=== PATIENT | male | born 1980 | race Two or more races ===

== ENCOUNTER 2016-12-06 00:36 | Emergency (ER) | payer OTHER ==
--- NOTE | 2016-12-06 00:47 | EDPHY ---
H & P Stated Complaint: Ring stuck on finger HPI/ROS: HPI CHIEF COMPLAINT: Ring stuck on finger HISTORY OF PRESENT ILLNESS: This patient 35-year-old male he is incarcerated, presents emergency room by police for ring that is stuck on his left ring finger. He placed this 2 hours ago. He cannot get off. They tried multiple attempts set senior care to cut off unsuccessfully. He presents emergency room for evaluation of this. He denies any significant pain. Past Medical History: Denies medical history Past Surgical History: Denies surgical Social History: admits to polysubstance abuse. Currently incarcerated. Family History: Noncontributory ROS REVIEW OF SYSTEMS: A comprehensive 10 point review of systems is otherwise negative aside from elements mentioned in the history of present illness. Exam Constitutional triage nursing summary reviewed, vital signs reviewed, awake/ alert. Eyes normal conjunctivae and sclera, EOMI, PERRLA. HENT normal inspection, atraumatic, moist mucus membranes, no epistaxis, neck supple/ no meningismus, no raccoon eyes. Respiratory clear to auscultation bilaterally, normal breath sounds, no respiratory distress, no wheezing. Cardiovascular rate normal, regular rhythm, no murmur, no edema, distal pulses normal. Gastrointestinal soft, non-tender, no rebound, no guarding, normal bowel sounds, no distension, no pulsatile mass. Genitourinary no CVA tenderness. Musculoskeletal no midline vertebral tenderness, full range of motion, no calf swelling, no tenderness of extremities, no meningismus, good pulses, neurovascularly intact. Left hand: Ring finger: There is a ring present. His finger is swollen at the base of the ring. There is no significant discoloration of his finger specifically good cap refill, no necrosis, warm finger. Skin pink, warm, & dry, no rash, skin atraumatic. Neurologic awake, alert and oriented x 3, AAOx3, moves all 4 extremities equally, motor intact, sensory intact, CN II-XII intact, normal cerebellar, normal vision, normal speech. Psychiatric normal mood/affect. Heme/Lymph/Immune no lymphadenopathy. Differential Diagnosis: Includes but is not limited to in a particular order: Ring stuck on finger. Medical Decision Making: Plan for this patient removed bring in the emergency room. Cut off. Re-evaluation: Source: Patient, Police - Personal History Current Tetanus/Diphtheria Vaccine: Yes Current Tetanus Diphtheria and Acellular Pertussis (TDAP): Yes Tetanus Vaccine Date: 2016 - Medical/Surgical History Hx Asthma: No Hx Chronic Respiratory Disease: No Hx Diabetes: No Hx Cardiac Disease: No Hx Renal Disease: No Hx Cirrhosis: No Hx Alcoholism: No Hx HIV/AIDS: No Hx Splenectomy or Spleen Trauma: No Other PMH: denies - Social History Smoking Status: Former smoker Constitutional: Initial Vital Signs Temperature (C) 36.5 C 12/06/16 00:38 Heart Rate 76 12/06/16 00:38 Respiratory Rate 16 12/06/16 00:38 Blood Pressure 127/73 H 12/06/16 00:38 O2 Sat (%) 99 12/06/16 00:38 O2 Delivery Mode Room Air Allergies/Adverse Reactions: No Known Allergies Allergy (Unverified 12/06/16 00:37) Home Medications: Medication Instructions Recorded NK [No Known Home Meds] 12/06/16 Departure - Departure Disposition: Home, Routine, Self-Care Condition: Good Instructions: Hematoma (ED) Additional Instructions: 1.I do recommend that you ice her finger for the next 24 hours this will help with pain and swelling. 2. Return emergency room if you have any worsening symptoms questions or concerns. Referrals: NONE *PRIMARY CARE P,. [Primary Care Provider] - As per Instructions
[2016-12-06] MEDS ORDERED: IBUPROFEN 600 MG TAB PO ONE ×2 (02:08→02:09)
[2016-12-06 02:14] VITALS: BP 116/73; PULSE 80; RESP 18; TEMP 97.9; O2SAT 95
== END 2016-12-06 02:13 ==
DX: S60.445A External constriction of left ring finger, initial encounter (principal); Z87.891 Personal history of nicotine dependence; W49.04XA Ring or other jewelry causing external constriction, initial encounter; Y92.149 Unspecified place in prison as the place of occurrence of the external cause